=== PATIENT | female | born 1990 | race Caucasian/White ===

== ENCOUNTER 2020-09-20 13:14 | Emergency (ER) | payer OTHER, SELFPAY ==
--- NOTE | ~2020-09-20 | XR_ITS ---
XR chest 1V portable DATE: 09/20/2020 14:30 INDICATION: Dyspnea. Sore throat. Asthma. TECHNIQUE: Portable AP chest on 09/20/2020 at 1424 hours COMPARISON: 06/05/2018 PA and lateral chest FINDINGS: Normal heart size. No hilar or mediastinal enlargement. No pulmonary infiltrate or consolid ation, pleural effusion or pulmonary vascular congestion or pneumothorax. IMPRESSION: No active cardiopulmonary disease Reviewed, dictated and finalized at location A.
[2020-09-20 13:39] VITALS: BP 129/76; PULSE 94; RESP 18; TEMP 36.2; O2SAT 100
--- NOTE | 2020-09-20 14:11 | PC.NURSE ---
Arrives via WC from triage, this am congested cough w/white mucus, was at work today walked up two flights up stairs then became SOB and anxious (sts episodes happened last night and today at noon). Hx asthma, +bilat lower lung burning , no audible wheezing, 100% RA. Used inhaler today after event today. Denies hx blood clots
--- NOTE | 2020-09-20 14:38 | ED.GENADULT ---
HPI - General Adult General Chief complaint: Shortness of Breath/Dyspnea Stated complaint: sob, bronchospasms Time Seen by Provider: 09/20/20 14:23 Source: patient and RN notes reviewed Mode of arrival: ambulatory Limitations: no limitations History of Present Illness HPI narrative: Patient is 30 years old white female presents with throat tightness, hard to breathe, intermittent periods of hot and sweaty, intermittent nausea started yesterday. History of asthma, last albuterol treatment over 1 year ago because she use it for exercise-induced asthma. Also history of anxiety and depression on Celexa, Depakote. BuSpar started 2 weeks ago. Also history of bipolar. Patient been vaccinated for COVID-19 infection on July 2020. Patient denies any fever, chills, vomiting, coughing, shortness of breath, back pain, headache. Related Data Home Medications Medication Instructions Recorded Confirmed divalproex 125 mg tablet,delayed 125 mg PO BID tablet 12/22/19 05/22/20 release citalopram 20 mg tablet 10 mg PO DAILY tablet 03/19/20 05/22/20 orphenadrine citrate 100 mg 100 mg PO Q12H 03/19/20 05/22/20 tablet,extended release albuterol 09/20/20 Allergies Allergy/AdvReac Type Severity Reaction Status Date / Time bupropion Allergy Severe Bruises Verified 03/19/20 14:13 cranberry Allergy Unknown Unknown Verified 03/19/20 14:13 Review of Systems Review of Systems: Narrative: CONSTITUTIONAL: Denies fever, chills, or sweats. EYES: Denies visual changes, redness, or discharge. ENT: Denies rhinorrhea, congestion, sore throat, or otalgia. CARDIOVASCULAR: Denies chest pain, palpitations, or edema. RESPIRATORY: Denies cough or dyspnea. GASTROINTESTINAL: Denies abdominal pain, nausea, vomiting, or diarrhea. GENITOURINARY: Denies dysuria or hematuria. SKIN: Denies rash or itching. MUSCULOSKELETAL: Denies back pain, joint pain, or myalgia. NEUROLOGIC: Denies headache, numbness, or weakness. PSYCHIATRIC: Denies anxiety or depression. [facility] Past Medical History Medical History Depression Heart burn Seasonal allergies Tension headache Family History Family History Sibling Depression Father Patient's father is in good health Mother Diverticulitis Social History Social History Smoking packs per day: 0.5 Smoking cigarettes per day: 10.0 Smoking status: Current every day smoker Alcohol intake: current Gender identity (if verbalized by the patient): Female Exam Narrative: Exam Narrative: General appearance: Well-developed, well-nourished Skin: Normal color Head: Normocephalic, nontraumatic Eyes: Clear conjunctiva ENT: Erythematous oropharynx, large erythematous tonsils, no discharge Neck: Supple, nontender Chest and respiratory: Airway patent, no respiratory distress, no accessory muscle use Heart: Regular rate/rhythm Abdomen: Soft, nontender, no organomegaly, quiet bowel sounds Vascular: Normal peripheral pulses, normal capillary refill. Musculoskeletal: Normal range of motion, nontender back Neurologic: Alert and oriented ?3, GROUP THERAPIST is normal as tested, no gross motor deficit Course Course Emergency Course: Stable Vital Signs Vital signs: Vital Signs Temperature 36.2 C L 09/20/20 13:39 Pulse Rate 94 09/20/20 13:39 Respiratory Rate 18 09/20/20 13:39 Blood Pressure 129/76 09/20/20 13:39 Pulse Oximetry 100 09/20/20 13:39 Temperature 36.2 C L 09/20/20 13:39 Pulse Rate 94 09/20/20 13:39 Respiratory Rate 18 09/20/20 13:39 Blood Pressure 129/76 04
[2020-09-20 15:07] LABS: Alveolar/Arterial O2 Gradient 100.4 mmHg; Base Excess ABG -0.9 mEq/l (+/-2.0); Carboxyhemoglobin 1.8 % THb (0-2.0); Fractional Inspired Oxygen 21 %; Methemoglobin ABG 0.1 %THb (0-1.5); Oxygen Content ABG 19.2 %vol (16.0-22.0); Oxygen Saturation ABG 98.3 % (95.0-100.0); Oxyhemoglobin 96.1 % THb (90.0-100.0); PCO2 ABG 24.6 mmHg (35.0-45.0); PO2 ABG 103.3 mmHg (80.0-100.0); PO2 FiO2 Ratio Arterial Blood 4.92 %; Total Hemoglobin 14.1 g/dL (12.0-18.0)
[2020-09-20 15:09] LABS: Device ROOM AIR; Site Drawn LEFT BRACHIAL; pH ABG 7.529 (7.350-7.450)
[2020-09-20 15:39] LABS: Basophils Absolute Auto 0.1 K/mm3 (0.0-0.1); Basophils Percent Auto 0.4 % (0.2-1.2); Eosinophils Percent Auto 0.2 % (0-4.4); Hematocrit 43.7 % (37.0-47.0); Hemoglobin 14.4 g/dL (12.0-15.0); Immature Granulocyte Absolute 0.08 K/mm3 (0.00-0.031); Immature Granulocyte Percent A 0.6 % (0-0.5); Lymphocytes Absolute Auto 2.07 K/mm3 (0.9-3.2); Lymphocytes Percent Auto 15.1 % (18.3-44.2); Mean Corpuscular Hemoglobin 30.1 pg (26-34); Mean Corpuscular Volume 91.2 fl (80-100); Mean Platelet Volume 11.7 fl (7.4-10.4); Monocytes Absolute Auto 0.8 K/mm3 (0.1-0.6); Monocytes Percent Auto 5.6 % (2.6-8.5); Neutrophils Absolute Auto 10.7 K/mm3 (1.3-6.7); Neutrophils Percent Auto 78.1 % (45.5-73.1); Platelet Count Result 261 k/mm3 (150-375); Red Blood Count 4.79 M/mm3 (4.2-5.4); Red Cell Distribution Width 13.4 % (11.5-14.5); White Blood Count 13.7 K/mm3 (4.5-10.0)
[2020-09-20 15:48] LABS: Alanine Aminotransferase 15 U/L (4-35); Albumin Level 4.6 g/dL (3.5-5.1); Alkaline Phosphatase 92 U/L (38-126); Anion Gap 8 mmol/L (8-16); Aspartate Amino Transferase 28 U/L (14-36); Bilirubin,Total 0.1 mg/dL (0.2-1.3); Blood Urea Nitrogen 8 mg/dL (7-17); Calcium 9.2 mg/dL (8.4-10.2); Carbon Dioxide 24 mmol/L (22-30); Chloride 109 mmol/L (98-107); Estimated CRCL calculation 133 ml/min; Estimated Glomerular Filt Rate > 60; Glucose 101 mg/dL (65-105); Potassium 4.1 mmol/L (3.4-5.0); Sodium 141 mmol/L (137-145)
[2020-09-20 16:07] LABS: Monoscreen Negative (Negative); Negative Monotest Control Negative (Negative); Positive Monotest Control Positive (Positive)
--- NOTE | 2020-09-20 16:40 | PC.NURSE ---
Dr. Salgado at bedside to update pt on dispo
[2020-09-20 17:10] VITALS: BP 122/72; PULSE 82; RESP 14; O2SAT 96
== END 2020-09-20 17:23 | disposition home or self-care (01) ==
PROVIDERS: Emergency Provider Emergency Medicine; PCP Internal Medicine
DX: J02.9 Acute pharyngitis, unspecified (principal); F41.9 Anxiety disorder, unspecified; F31.9 Bipolar disorder, unspecified; J45.909 Unspecified asthma, uncomplicated; F17.210 Nicotine dependence, cigarettes, uncomplicated
CPT/HCPCS: 36415; 36600; 71045; 80053; 81025; 82375; 82805; 83050; 85025; 86308; 87081; 87880; 96372; 99283; J1100

== ENCOUNTER 2021-04-09 12:32 | Emergency (ER) | payer OTHER, SELFPAY ==
[2021-04-09 12:40] VITALS: BP 118/81; PULSE 90; RESP 16; TEMP 36.4; O2SAT 100
--- NOTE | 2021-04-09 12:58 | ED.BACK ---
HPI - Back Pain/Injury General Chief Complaint: Back Pain/Injury Stated Complaint: Lower back Pain History of Present Illness HPI Narrative: This is a 30-year-old female presents to the urgent care back pain that is in the middle of her back that shoots down her right buttocks and her leg. Patient states that her symptoms started yesterday when she was lifting at work when she fell to her knees. Patient states the only way that makes her feel better is when she is lying down. Patient informs us that she has a history of a pinched nerve Related Data Allergies Allergy/AdvReac Type Severity Reaction Status Date / Time bupropion Allergy Severe Bruises Verified 04/09/21 12:49 cranberry Allergy Unknown Unknown Verified 04/09/21 12:49 Review of Systems Review of Systems: Back pain shooting down the right leg All systems reviewed & are unremarkable except as noted in HPI and below PMFSH Past Medical History Medical History Depression Heart burn Seasonal allergies Tension headache Family History Family History Sibling Depression Father Patient's father is in good health Mother Diverticulitis Social History Social History Smoking packs per day: 0.5 Smoking cigarettes per day: 10.0 Smoking status: Current every day smoker Alcohol intake: current Alcohol use details: social Gender identity (if verbalized by the patient): Female Comments At time as signature, I have reviewed and agree with nursing past medical, social, surgical and family history. Please see nursing chart for further information. There is no relevant family history pertinent to the presenting complaint. Exam Narrative: GENERAL:illl-appearing, well-nourished, and in no acute distress. HEAD:Normocephalic, EYES: PERRLA and EOMI. ENT: Nares clear, no rhinorrhea or epistaxis. Mucous membranes moist. NECK: Supple. CHEST: Clear to auscultation. No respiratory distress. HEART: Regular rate and rhythm. No murmur heard. Normal peripheral pulses. ABDOMEN: Soft, nontender, nondistended, normal active bowel sounds. EXTREMITIES: Back pain that was shooting down leg right side normal range of motion. No edema. Patient unable to kick leg SKIN: Warm, dry, no rash. NEURO: No focal deficits. Alert and oriented x3. Course Vital Signs Vital signs: Vital Signs Temperature 97.6 F 04/09/21 12:40 Pulse Rate 90 04/09/21 12:40 Respiratory Rate 16 04/09/21 12:40 Blood Pressure 118/81 04/09/21 12:40 Pulse Oximetry 100 04/09/21 12:40 Temperature 97.6 F 04/09/21 12:40 Pulse Rate 90 04/09/21 12:40 Respiratory Rate 16 04/09/21 12:40 Blood Pressure 118/81 04/09/21 12:40 Pulse Oximetry 100 04/09/21 12:40 MDM - Back Pain/Injury Differential Diagnosis Differential diagnosis: Likely lumbar radiculopathy, sciatica, strain of lumbar region, renal colic, pyelonephritis and thoracic back pain Discharge Plan Discharge Clinical Impression: Sciatica Patient Disposition: Home, Self-Care Condition: Stable Instructions: Antibiotic Form, Sciatica (ED), Lower Back Exercises (ED) Additional Instructions: Back pain back pain Prescriptions: New methylprednisolone [Medrol (Mihai)] 4 mg tablets,dose pack See Rx Instructions .ROUTE .COMPLEX Qty: 21 RF: 0 ibuprofen 800 mg tablet 800 mg PO TID PRN (Reason: pain) Qty: 20 RF: 0 cyclobenzaprine 5 mg tablet 5 mg PO TID PRN (Reason: muscle spasm) Qty: 20 RF: 0 Follow-up/Referrals: Maurizio Haji DO [Primary Care Provider] - Stand Alone Forms: Work/School Release IP Time of Disposition: 13:01
== END 2021-04-09 13:05 | disposition home or self-care (01) ==
PROVIDERS: Emergency Provider Nurse Practitioner Family; PCP Internal Medicine
DX: M54.31 Sciatica, right side (principal); F17.210 Nicotine dependence, cigarettes, uncomplicated; F32.9 Major depressive disorder, single episode, unspecified
CPT/HCPCS: 99213; G0463

== ENCOUNTER 2021-08-05 08:58 | Emergency (ER) | payer OTHER, SELFPAY ==
--- NOTE | ~2021-08-05 | CT_ITS ---
EXAMINATION: CT brain wo con, CT cervical spine wo con EXAM DATE: 08/05/2021 09:45 INDICATION: Posterior head injury. Dizziness. TECHNIQUE: Spiral CT of the head was performed without contrast. Axial, coronal and sagittal images were reviewed. Spiral CT of the cervical spine was performed without contrast. Axial images were rev iewed. Coronal and sagittal reformatted images were also reviewed. The dose-length product (DLP) fo r this examination was 605.33 (accession [id number]), 517.23 (accession [id number]) mGy-cm. The exposure was tailored according to patient size, and iterative reconstruction (ASIR) was used as additional dose reduction technique. There is no prior study for comparison. FINDINGS: HEAD CT: There is no acute intraparenchymal hemorrhage. No evidence of intraparenchymal brain mass l esion. No evidence of acute infarction. There is no mass effect or midline shift. There is no obstru ctive hydrocephalus suspected. There are no extra-axial collections. There are no acute calvarial f ractures. The orbits are unremarkable. Soft tissue is unremarkable. The visualized sinuses and mas toid air cells are well aerated. CERVICAL CT: There is no evidence of acute cervical fracture. The odontoid process is intact. Pre- dens space is normal. Prevertebral soft tissue is normal. There are no soft tissue abnormalities id entified. There is no disc space widening or traumatic vertebral body subluxation suspected. Mild c ervical spondylosis. A detailed level by level evaluation of spondylosis can be added as addendum if requested. IMPRESSION: 1. No acute intracranial findings or cervical fracture. Reviewed, dictated and finalized at location A. [employer] IMPRESSION: 1. No acute intracranial findings or cervical fracture.
[2021-08-05 09:13] VITALS: BP 129/88; PULSE 95; RESP 18; TEMP 37.4; O2SAT 99
--- NOTE | 2021-08-05 09:29 | ED.DIZZY ---
HPI - Dizziness General Chief Complaint: Dizziness Stated Complaint: fall/hi/dizzy Time Seen by Provider: 08/05/21 09:00 History of Present Illness HPI Narrative: 31-year-old female presents to the emergency room with complaints of dizziness for 6 days. Patient states last week she tripped over a chair and struck the left side of her head on the table. Denies LOC, dizziness or lightheadedness at that time. Denies altered mental status, somnolence, or difficulty concentrating. States dizziness is worse when moving her head from side to side or trying to focus on objects. Related Data Allergies Allergy/AdvReac Type Severity Reaction Status Date / Time bupropion Allergy Severe Bruises Verified 04/09/21 12:49 cranberry Allergy Unknown Unknown Verified 04/09/21 12:49 Review of Systems Review of Systems: CONSTITUTIONAL: Denies fever, chills, or sweats. EYES: Denies visual changes, redness, or discharge. ENT: Denies rhinorrhea, congestion, sore throat, or otalgia. CARDIOVASCULAR: Denies chest pain, palpitations, or edema. RESPIRATORY: Denies cough or dyspnea. GASTROINTESTINAL: Denies abdominal pain, nausea, vomiting, or diarrhea. GENITOURINARY: Denies dysuria or hematuria. SKIN: Denies rash or itching. MUSCULOSKELETAL: Denies back pain, joint pain, or myalgia. NEUROLOGIC: Reports headache, and dizziness PSYCHIATRIC: Denies anxiety or depression. [facility] Past Medical History Medical History Depression Heart burn Seasonal allergies Tension headache Family History Family History Sibling Depression Father Patient's father is in good health Mother Diverticulitis Social History Social History Smoking packs per day: 0.5 Smoking cigarettes per day: 10.0 Smoking status: Current every day smoker Alcohol intake: current Alcohol use details: social Gender identity (if verbalized by the patient): Female Exam Narrative: GENERAL: Well-appearing, well-nourished, and in no acute distress. HEAD: Normocephalic, atraumatic. EYES: PERRLA and EOMI. ENT: Nares clear, no rhinorrhea or epistaxis. Mucous membranes moist. NECK: Supple. No adenopathy or masses. No carotid bruits or JVD CHEST: Clear to auscultation. No respiratory distress. No wheezes rales or rhonchi HEART: Regular rate and rhythm. No murmur heard. Normal peripheral pulses. ABDOMEN: Soft, nontender, nondistended, normal active bowel sounds. EXTREMITIES: Normal range of motion. No edema. SKIN: Warm, dry, no rash. NEURO: No focal deficits. Alert and oriented x3. PSYCH: Normal mood and affect. Course Vital Signs Vital signs: Vital Signs Temperature 37.4 C 08/05/21 09:13 Pulse Rate 95 08/05/21 09:13 Respiratory Rate 18 08/05/21 09:13 Blood Pressure 129/88 08/05/21 09:13 Pulse Oximetry 99 08/05/21 09:13 Temperature 37.4 C 08/05/21 09:13 Pulse Rate 97 08/05/21 09:31 Respiratory Rate 15 08/05/21 09:31 Blood Pressure 108/78 08/05/21 09:31 Pulse Oximetry 100 08/05/21 09:31 MDM - Dizziness MDM Narrative Medical decision making narrative: CT shows no acute intracranial abnormality, cervical spine no acute findings. Patient states nausea is relieved with Zofran, and dizziness is beginning to improve after the administration of meclizine. Imaging Data Radiologist's impression: Impressions Cervical Spine CT 08/05/21 09:46 IMPRESSION: 1. No acute intracranial findings or cervical fracture. Head CT 08/05/21 09:46 IMPRESSION: 1. No acute intracranial findings or cervical fracture. Discharge Plan Discharge Clinical Impression: Concussion, Head injury, Dizziness Patient Disposition: Home, Self-Care Condition: Stable Instructions: Antibiotic Form, Dizziness (ED) Additional Instructions: Limit activities
[2021-08-05 09:31] VITALS: BP 108/78; PULSE 97; RESP 15; O2SAT 100
[2021-08-05] MEDS: ONDANSETRON INJ 4 MG/2 ML VIAL IV PUSH (09:53)
[2021-08-05] MEDS: MECLIZINE HCL 25 MG TABLET PO (09:55)
[2021-08-05] MEDS: KETOROLAC 30 MG/ML VIAL (*BKC) IV PUSH (10:16)
[2021-08-05 10:31] VITALS: BP 123/73; PULSE 90; RESP 18; O2SAT 100
== END 2021-08-05 10:25 | disposition home or self-care (01) ==
PROVIDERS: Emergency Provider Nurse Practitioner Family; PCP Internal Medicine
DX: S06.0X0A Concussion without loss of consciousness, initial encounter (principal); R42 Dizziness and giddiness; F32.A Depression, unspecified; R12 Heartburn; F17.210 Nicotine dependence, cigarettes, uncomplicated; W01.190A Fall on same level from slipping, tripping and stumbling with subsequent striking against furniture, initial encounter
CPT/HCPCS: 70450; 72125; 96374; 96375; 99284; A9270; J1885; J2405

== ENCOUNTER 2023-08-12 13:22 | Emergency (ER) | payer OTHER, SELFPAY ==
--- NOTE | ~2023-08-12 | CT_ITS ---
EXAMINATION: CT brain wo con DATE: 08/12/2023 14:39 INDICATION: Paresthesias TECHNIQUE: Computed tomography (CT) of the head was performed without intravenous contrast. Sagittal and coronal reconstructions were performed. The mA was adjusted according to patient size. Iterative reconstruction technique was employed. The dose-length product was 681.00 mGy-cm. COMPARISON: head CT dated 08/15/2021 FINDINGS: No acute intracranial hemorrhage, acute infarction or abnormal extra axial fluid collection. Ventricl es are normal and symmetric. No mass/mass effect. The orbits, paranasal sinuses and mastoid air cells are normal. IMPRESSION: 1. Normal head CT Reviewed, dictated and finalized at location B. IMPRESSION: 1. Normal head CT
--- NOTE | ~2023-08-12 | XR_ITS ---
EXAMINATION: XR chest 2V DATE: 08/12/2023 14:56 INDICATION: Dyspnea with numbness to the hands, legs, feet and tongue TECHNIQUE: PA and lateral views of the chest were obtained. COMPARISON: Chest radiograph dated 09/20/2020 FINDINGS: The lungs remain clear with no focal airspace opacities, pulmonary edema, pleural effusion or pneumot horax. The cardiomediastinal silhouette is normal. Mild thoracic spondylosis. IMPRESSION: 1. No acute cardiopulmonary disease. Reviewed, dictated and finalized at location B.
--- NOTE | 2023-08-12 13:31 | ECG_ITS ---
Measurements Intervals [place] Rate: 112 P: 33 NM: 147 QRS: 60 QRSD: 66 T: 39 QT: 307 QTc: 420 Interpretive Statements SINUS TACHYCARDIA POSSIBLE LEFT ATRIAL ENLARGEMENT MINIMAL Q WAVES- ANTEROLAT/INF LEADS BASELINE ARTIFACT- I, II, AVR, AVL, AVF, V3 ABNORMAL ECG NO PREVIOUS ECG AVAILABLE FOR COMPARISON Electronically Signed On 08-12-2023 13:50:05 CDT by Darren Bustamante D.O.
[2023-08-12 13:38] VITALS: BP 119/81; PULSE 109; RESP 17; TEMP 36.5; O2SAT 100
[2023-08-12 13:41] VITALS: O2SAT 100
--- NOTE | 2023-08-12 13:43 | ED.ALLEREA ---
HPI - Allergic Reaction General Chief complaint: Allergic Reaction Stated complaint: poss allergic reaction Time Seen by Provider: 08/12/23 13:35 Source: patient Mode of arrival: ambulatory Limitations: no limitations History of Present Illness HPI narrative: This is a 33 year old female that presents to the ER for tingling to her face ongoing today. Reports she has been on Valtrex for Shingles since Thursday. She had developed a rash on the right buttock last Thursday. Today she has had worsening tingling in her face and was worried she was having an allergic reaction to the medication. She was uncertain if it was just anxiety. Reports feeling short of breath. Denies swelling of her face or tongue, hives, itching, focal numbness or weakness. Related Data Home Medications Medication Instructions Recorded Confirmed medroxyprogesterone 150 mg/mL mg IM 11/07/22 11/07/22 intramuscular suspension Allergies Allergy/AdvReac Type Severity Reaction Status Date / Time bupropion Allergy Severe Bruises Verified 11/07/22 11:28 cranberry Allergy Unknown Unknown Verified 11/07/22 11:28 Review of Systems Review of Systems: CONSTITUTIONAL: Denies fever EYES: Denies visual changes CARDIOVASCULAR: Denies chest pain RESPIRATORY: Reports dyspnea. GASTROINTESTINAL: Denies nausea, vomiting, or diarrhea. SKIN: Denies rash or itching. NEUROLOGIC: Denies numbness, or weakness. PSYCHIATRIC: Reports anxiety All systems reviewed & are unremarkable except as noted in HPI and below PMFSH Past Medical History Medical History Depression Heart burn Seasonal allergies Tension headache Family History Family History Sibling Depression Father Patient's father is in good health Lung cancer stage IV Mother Diverticulitis Grandparent Breast cancer Social History Social History (Updated 11/07/22 @ 11:42 by Elvia Jules CMA) Smoking packs per day: 0.5 Smoking cigarettes per day: 10.0 Smoking status: Current every day smoker Alcohol intake: former Alcohol use details: social Lack of Transportation: No Lack of Food: Never True Current Housing: I Have Housing Concerned About Future Housing: No Difficulty Paying Gas/Electric Bills: Decline to Answer Difficulty Paying for Meds: Decline to Answer Currently Unemployed: No Education: High School Diploma/GED Difficulty w/ Childcare or Family Care: Decline to Answer Gender identity (if verbalized by the patient): Female Exam Narrative: GENERAL: Well-appearing, well-nourished, and in no acute distress. HEAD: Normocephalic, atraumatic. EYES: PERRLA and EOMI. ENT: Nares clear, no rhinorrhea or epistaxis. Mucous membranes moist. Oropharynx without tonsillar hypertrophy exudate or other lesions. Bilateral TMs pearly short non-bulging. No swelling of the lips, tongue or throat NECK: Supple. No adenopathy or masses. CHEST: Clear to auscultation. No respiratory distress. No wheezes rales or rhonchi HEART: Regular rate and rhythm. No murmur heard. Normal peripheral pulses. ABDOMEN: Soft, nontender, nondistended, normal active bowel sounds. EXTREMITIES: Normal range of motion. No edema. SKIN: Warm, dry. Vesicles on an erythematous base to the right buttock in a dermatomal pattern, no other rashes noted NEURO: No focal deficits. Alert and oriented x3. CN II-XII grossly intact PSYCH: Anxious Course Course Emergency Course: Patient reports feeling much better. Ready for discharge Vital Signs Vital signs: Vital Signs Temperature 97.7 F 08/12/23 13:38 Pulse Rate 109 H 08/12/23 13:38 Respiratory Rate 17 08/12/23 13:38 Blood Pressure 119/81 08/12/23 13:38 Pulse Oximetry 100 08/12/23 13:38 Oxygen Delivery Room Air 08/12/23 13:38 Temperature 97.7 F 08/12/23 13:38 Pulse Rate 109 H 08/12/23 13:38 Respiratory Rate 17
[2023-08-12 14:11] LABS: Alanine Aminotransferase 17 U/L (6-35); Albumin Level 4.6 g/dL (3.5-5.1); Alkaline Phosphatase 80 U/L (38-126); Anion Gap 11 mmol/L (8-16); Aspartate Amino Transferase 25 U/L (14-36); Basophils Absolute Auto 0.1 K/mm3 (0.0-0.1); Basophils Percent Auto 0.5 % (0.2-1.2); Bilirubin,Total 0.5 mg/dL (0.2-1.3); Blood Urea Nitrogen 12 mg/dL (7-17); Calcium 9.5 mg/dL (8.4-10.2); Carbon Dioxide 25 mmol/L (22-30); Chloride 104 mmol/L (98-107); Eosinophils Absolute Auto 0.1 K/mm3 (0-0.3); Eosinophils Percent Auto 1.3 % (0-4.4); Estimated CRCL calculation 107 ml/min; Estimated Glomerular Filt Rate > 60; Glucose 111 mg/dL (65-110); Hematocrit 43.3 % (37.0-47.0); Hemoglobin 13.8 g/dL (12.0-15.0); Immature Granulocyte Absolute 0.03 K/mm3 (0.00-0.031); Immature Granulocyte Percent A 0.3 % (0-0.5); Lymphocytes Absolute Auto 3.06 K/mm3 (0.9-3.2); Lymphocytes Percent Auto 27.7 % (18.3-44.2); Magnesium 2.2 mg/dL (1.6-2.3); Mean Corpuscular HGB Conc 31.9 g/dl (32-36); Mean Corpuscular Hemoglobin 28.7 pg (26-34); Mean Platelet Volume 12.1 fl (7.4-10.4); Monocytes Absolute Auto 0.7 K/mm3 (0.1-0.6); Monocytes Percent Auto 5.9 % (2.6-8.5); Neutrophils Absolute Auto 7.1 K/mm3 (1.3-6.7); Neutrophils Percent Auto 64.3 % (45.5-73.1); Platelet Count Result 289 k/mm3 (150-375); Potassium 3.5 mmol/L (3.4-5.0); Red Blood Count 4.81 M/mm3 (4.2-5.4); Red Cell Distribution Width 13.6 % (11.5-14.5); Sodium 140 mmol/L (137-145); White Blood Count 11.1 K/mm3 (4.5-10.0)
[2023-08-12] MEDS: diphenhydrAMINE HCl INJ 50 MG/ML VIAL 25 MG IV PUSH (14:13)
[2023-08-12] MEDS: FAMOTIDINE 20 MG/2 ML VIAL IV PUSH (14:13)
[2023-08-12] MEDS: SODIUM CHLORIDE 0.9% IV 1,000 ML 999 ML IV CONT (14:14)
[2023-08-12] MEDS: methylPREDNISolone SOD SUCC 125 MG VIAL IV PUSH (14:14)
[2023-08-12 15:16] LABS: Folic Acid 16.3 ng/mL (2.76->20)
[2023-08-12 17:08] VITALS: BP 107/67; PULSE 81; RESP 16; O2SAT 99
== END 2023-08-12 17:09 | disposition home or self-care (01) ==
PROVIDERS: Emergency Provider Physician Assistant; PCP Internal Medicine
DX: R20.2 Paresthesia of skin (principal); F41.9 Anxiety disorder, unspecified; T50.905A Adverse effect of unspecified drugs, medicaments and biological substances, initial encounter; F17.210 Nicotine dependence, cigarettes, uncomplicated; F32.A Depression, unspecified
CPT/HCPCS: 36415; 70450; 71046; 80053; 82607; 82746; 83735; 85025; 93005; 96361; 96374; 96375; 99284; J1200; J2930; J7030